=== PATIENT | male | born 1940 | race Caucasian/White ===

== ENCOUNTER → 2016-06-22 | Outpatient (CLI) | payer OTHER ==
[~2016-06-22] VITALS: Ht 177.8 cm; Wt 95.3 kg
[~2016-06-22] MED LIST: ALLEGRA ALLERGY60 MG PO; AMOXICILLIN 50500 M1 PO; ASPIR 8181 MG PO; CASODEX 50 MG T50 MG PO; CENTRUM SILVER1 EAC2 PO; FISH OIL 1,001000 M2 PO; GLUCOSAMINE &1 EACH PO; MUCINEX100 MG PO; PROBIOTIC1 EAC1 PO; VITAMINC500 PO
--- NOTE | ~2016-06-22 | S ---
[facility] [address] [place] [address] SURGICAL PATH RPT PROCEDURE Name: GEORGE HADDAD Room #: REG EMMY El#: [id number] Admission: 06/22/16 Date of : 40 Discharge: Report #: [id number] Path Case #: [id number] PATHOLOGY REPORT DRAFT COLLECTION DATE: 06/22/2016 RECEIVED DATE: 06/23/2016 SPECIMEN(S) RECEIVED: A.Polyp hepatic flexure B.Polyp cecum C.Polyp proximal ascending colon x 2 D.Polyp 80 cm x 2
--- NOTE | ~2016-06-22 | P ---
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 He has had previous genetic counseling and genetic testing. A genetic abnormality was not identified, but due to his family history of colon cancer, father at age 52 and his high polyp count, he returns for high risk screening colonoscopy about every 1-2 years. PREOPERATIVE DIAGNOSIS: High risk screening colonoscopy due to multiple colon polyps and family history of colon cancer. POSTOPERATIVE DIAGNOSES: 1. Multiple diminutive colon polyps. 2. Moderate diverticulosis coli, sigmoid colon. MEDICATIONS: Deep sedation with propofol per anesthesia. SPECIMEN: 1. Diminutive polyp, hepatic flexure. 2. Diminutive polyp, cecum. 3. Diminutive polyp, proximal ascending colon x 2. 4. Diminutive polyps, 80 cm x 2. ESTIMATED BLOOD LOSS: 3 mL. PROCEDURE: Colonoscopy to cecum and terminal ileum with biopsy. FINDINGS: Prior to propofol sedation, procedure of colonoscopy discussed with the patient as well as potential risks and its complications. He indicates he understands and desires to proceed. DESCRIPTION OF PROCEDURE: With the patient in left lateral decubitus position, digital examination was completed which revealed no abnormalities. Subsequently, the [employer] video colonoscope was introduced in the rectum, advanced under direct vision to the cecum. Done with minimal difficulty. The cecum was identified by the ileocecal valve and the appendiceal orifice. I was able to visualize the distal segment of terminal ileum, which was inspected and noted to be unremarkable. At that point, the scope was slowly withdrawn and careful circumferential views obtained. Within the cecum, a diminutive polyp seen and [facility] [address] [place] [address] PROCEDURE REPORT Name: HADDADGEORGE L Room #: REG [facility]#: [id number] Admission: 06/22/16 Attend Phys: Eddie Baeza MD Discharge: Date of : 40 Report #: [id number] removed by biopsy. As we withdrew the scope, 2 diminutive polyps were seen and removed by biopsy from the proximal ascending colon. Another diminutive polyp seen and removed by biopsy from the hepatic flexure. As we withdrew the scope, no additional abnormalities were noted until about 80 cm, at which point, 2 more diminutive polyps were seen and removed by biopsy. Scope was further withdrawn and no additional polyps were seen. However, he was noted to have moderately severe diverticular disease primarily of the sigmoid colon without endoscopic evidence of diverticulitis. Scope was withdrawn in the rectum. Upon retroflexion, no abnormalities were seen. Scope was withdrawn. The patient tolerated the procedure well. CONDITION OF THE PATIENT UPON DISCHARGE: Following procedure, the patient drowsy, aroused, conversant and will be discharged home when fully ambulatory. INSTRUCTIONS TO THE PATIENT AND FAMILY AT THE TIME OF DISCHARGE: A total of 6 polyps were identified and removed today. We will follow up on the path and make further recommendations. However, at this point, due to his family history and personal history, I would suggest he return in 1-2 years for his next high risk screening colonoscopy. He will return to the care of Dr. Sullivan and return to see me as needed. Last colonoscopy was approximately 1-1/2 years ago. Withdrawal time from the cecum was 13 minutes. <ELECTRONICALLY SIGNED> By: Eddie Baeza MD 06/24/16 1228 [id number] Eddie Baeza MD /nt
== END | disposition home or self-care (01) ==
LOC: GI 06-08 15:31
DX: Z12.11 Encounter for screening for malignant neoplasm of colon (principal); D12.0 Benign neoplasm of cecum; D12.2 Benign neoplasm of ascending colon; D12.3 Benign neoplasm of transverse colon; K57.30 Diverticulosis of large intestine without perforation or abscess without bleeding; Z86.010 Personal history of colon polyps; Z80.0 Family history of malignant neoplasm of digestive organs; Z85.46 Personal history of malignant neoplasm of prostate